=== PATIENT | male | born 1950 | race Caucasian/White ===

== ENCOUNTER 2024-09-29 12:20 | Day surgery (SDC) | payer OTHER, SELFPAY ==
[2024-09-28 14:22] VITALS: BMI 26.3
[2024-09-29] VITALS (14 sets, daily range): BP systolic 121–170; BP diastolic 77–100; PULSE 77–96; RESP 11–18; TEMP 36.5–36.7; O2SAT 94–100; BMI 25.8
[2024-09-29] MEDS: SODIUM CHLORIDE 0.9% 500 ML 500 ML 20 ML IV (14:16)
[2024-09-29] MEDS: BENZOCAINE 20% (Hurricaine) SPRAY 1 DOSE TOP (14:16)
[2024-09-29] MEDS: fentaNYL CIT INJ 50 mCg/ML AMP 2ML (ASD USE ONLY) IVP (14:30)
[2024-09-29] MEDS: MIDAZOLAM INJ 1 MG/ML VIAL 2 ML (ASD USE ONLY) 2 MG IVP (14:30)
== END 2024-09-29 15:45 | disposition home or self-care (01) ==
PROVIDERS: PCP Family Medicine; Referring Provider Specialist; Visit Provider Specialist
PROC: 0DBE8ZX Excision of Large Intestine, Via Natural or Artificial Opening Endoscopic, Diagnostic (ICD-10-PCS; CPT 45380; principal; 2024-09-29 13:15)
PROC: (CPT 43239; 2024-09-29 13:15)
DX: D12.3 Benign neoplasm of transverse colon (principal); R19.4 Change in bowel habit; K57.30 Diverticulosis of large intestine without perforation or abscess without bleeding; K64.9 Unspecified hemorrhoids; E78.5 Hyperlipidemia, unspecified; E11.9 Type 2 diabetes mellitus without complications; I10 Essential (primary) hypertension
CPT/HCPCS: 45385; J1200; J2250; J3010; J7999; A9270

== ENCOUNTER → 2024-10-26 | Outpatient (CLI) | payer OTHER, SELFPAY ==
--- NOTE | 2024-10-26 09:00 | XR_ITS ---
Examination: Abdomen sonogram, Limited Date and time of exam: October 26, 2024 0905 hours INDICATIONS: Abdominal bloating and distention this week Technique: Real-time pena scale transabdominal sonographic images of the upper abdomen obtained. Findings: Normal gallbladder. Normal common bile duct 0.3 cm. Pancreatic head 1.9 cm. Liver 12.4 cm no liver lesions. Normal hepatopedal portal venous flow Patent IVC IMPRESSION: Negative study
== END | disposition home or self-care (01) ==
PROVIDERS: Referring Provider Specialist; Visit Provider Specialist
DX: R14.0 Abdominal distension (gaseous) (principal)
CPT/HCPCS: 76705